=== PATIENT | male | born 1970 | race Caucasian/White ===

== ENCOUNTER 2017-03-22 06:16 | Observation (INO) | payer OTHER ==
[2017-03-22] VITALS (7 sets, daily range): BP systolic 127–156; BP diastolic 79–84; PULSE 53–75; RESP 16–18; TEMP 97.8–98.4; O2SAT 96–98
[~2017-03-22] VITALS: Ht 185.4 cm; Wt 117.1 kg
[~2017-03-22 06:16] MED LIST: ALEV220T14 PO; HYDR-3533 PO
[2017-03-22] MEDS ORDERED: IOHEXOL 350 MG/ML 10 ML VIAL (for RAD DIAG) IVCONTRAST ONE (06:17)
--- NOTE | 2017-03-22 06:39 | PD ---
HPI Chief Complaint: Abdominal Pain Time Seen by Provider: 06:29 Travel History International Travel<30 days: No Contact w/Intl Traveler<30days: No Traveled to known affect area: No History of Present Illness HPI This is a 46-year-old male who presents to the emergency department with abdominal discomfort that started at 10 PM last night, constant, moderate severity, improved when standing up and worse when laying flat, all over his abdomen radiating into the back. He has felt nauseous but hasn't vomited. He did feel little bit feverish this morning. He says he had a loose stool this morning but no jaciel diarrhea. He does have a history of a cholecystectomy and an umbilical hernia repair. PFSH Past Medical History Arthritis: Yes Asthma: No Autoimmune Disease: No Blood Disorders: No Anxiety: No Depression: No Heart Rhythm Problems: No Cancer: No Cardiovascular Problems: No High Cholesterol: No Chemotherapy: No Chest Pain: No Congestive Heart Failure: No COPD: No Cerebrovascular Accident: No Diabetes: No Diminished Hearing: No Endocrine: No GERD: No Glaucoma: No Genitourinary: No Headaches: No Hepatitis: No Hiatal Hernia: No Hypertension: No Kidney Stones: No Musculoskeletal: Yes ("I NEED TOTAL RIGHT HIP REPLACEMENT" STATED 03/22/17) Neurologic: No Psychiatric: No Respiratory: No Myocardial Infarction: No Radiation Therapy: No Renal Failure: No Seizures: No Sickle Cell Disease: No Sleep Apnea: No Thyroid Disease: No Ulcer: No Tetanus Vaccination: < 5 Years Influenza Vaccination: No Past Surgical History Abdominal Surgery: Yes (2 HERNIA REPAIRS WITH MESH) AICD: No Cardiac Surgery: No Cholecystectomy: Yes Ear Surgery: No Endocrine Surgery: No Eye Surgery: No Genitourinary Surgery: No Gynecologic Surgery: No Oral Surgery: No Pacemaker: No Thoracic Surgery: No Tonsillectomy: Yes Social History Alcohol Use: Yes (OCCASIONALLY) Tobacco Use: No Substance Use: No Allergies-Medications (Allergen,Severity, Reaction): Coded Allergies: azithromycin (Unverified Allergy, Severe, RASH, 03/22/17) Reported Meds & Prescriptions Reported Meds & Active Scripts Active Reported Lortab 5 mg/325 mg (Hydrocodone/Acetaminophen 5 mg/325 mg) 1 Tab 1 Tab PO Q6H PRN Aleve Arthritis (Naproxen Sodium) 220 Mg Tab 220 Mg PO BID PRN Review of Systems Except as stated in HPI: all other systems reviewed are Neg Physical Exam Narrative GENERAL:Well appearing, no acute distress SKIN: Focused skin assessment warm and dry. HEAD: Atraumatic. Normocephalic. EYES: Pupils equal and round. No injection or drainage. ENT: Moist mucous membranes NECK: Trachea midline. CARDIOVASCULAR: Regular rate and rhythm. No murmur appreciated. RESPIRATORY: Clear to auscultation. Breath sounds equal bilaterally. GASTROINTESTINAL: Abdomen soft, diffusely tender to palpation worse in the left lower quadrant with no rebound or guarding. MUSCULOSKELETAL: No obvious deformities. NEUROLOGICAL: Awake and alert. No obvious cranial nerve deficits. Moving all extremities. PSYCHIATRIC: Appropriate mood and affect; insight and judgment normal. Data Data Last Documented VS Vital Signs Date Time Temp Pulse Resp B/P (MAP) Pulse Ox O2 Delivery O2 Flow Rate FiO2 03/22/17 06:22 98.4 75 16 136/80 (98) 97 Orders Orders Complete Blood Count With Diff (03/22/17 06:36) Comprehensive Metabolic Panel (03/22/17 06:36) ^ Insert Iv (03/22/17 06:36) Ct Abd/Pel W Iv Contrast(Rout) (03/22/17 ) Morphine Inj (Morphine Inj) (03/22/17 06:45) Ondansetron Inj (Zofran Inj) (03/22/17 06:45) Ns (Bolus) Inj (03/22/17 06:45) MDM Medical Decision Making Medical Screen Exam Complete: Yes Emergency Medical Condition: Yes Differential Diagnosis Gastroenteritis, colitis, diverticulitis, pancreatitis, gastritis Narrative Course This is a 46-year-old male who presents to the emergency department with abdominal discomfort that's been going on since last evening. The pain appears to be most concentrated in the left lower abdomen concerning for possible diverticulitis. Labs will be obtained and CT imaging will be obtained. If reassuring patient can be discharged home. Nadine Salas MD Mar 22, 2017 06:39
[2017-03-22] MEDS ORDERED: MEDI220T PO (06:42)
[2017-03-22] MEDS ORDERED: HYDR-3533 PO (06:42)
[2017-03-22] MEDS ORDERED: SODIUM CHLOR 0.9% 1000 ML INJ 1,000 ML IV ONE (06:45)
[2017-03-22] MEDS ORDERED: MORPHINE SULFATE 4 MG/ML INJ IV PUSH ONE (06:45)
[2017-03-22] MEDS ORDERED: ONDANSETRON HCL 4 MG/2 ML VIAL IV PUSH ONE (06:45)
--- NOTE | 2017-03-22 06:49 | PD ---
Physical Exam Date Seen by Provider: Mar 22, 2017 Time Seen by Provider: 06:48 Narrative The patient is a 46-year-old male who was initially evaluated by the previous physician, Dr. Salas. Please refer to the initial history, physical, diagnostic evaluation, and treatment modality plan. The patient was signed out at 7 AM with laboratory evaluation and CT the abdomen and pelvis pending. Data Data Last Documented VS Vital Signs Date Time Temp Pulse Resp B/P (MAP) Pulse Ox O2 Delivery O2 Flow Rate FiO2 03/22/17 06:22 98.4 75 16 136/80 (98) 97 Orders Orders Complete Blood Count With Diff (03/22/17 06:36) Comprehensive Metabolic Panel (03/22/17 06:36) ^ Insert Iv (03/22/17 06:36) Ct Abd/Pel W Iv Contrast(Rout) (03/22/17 ) Morphine Inj (Morphine Inj) (03/22/17 06:45) Ondansetron Inj (Zofran Inj) (03/22/17 06:45) Sodium Chlor 0.9% 1000 Ml Inj (Ns 1000 M (03/22/17 06:45) Urinalysis - C+S If Indicated (03/22/17 06:41) Lipase (03/22/17 06:36) Iohexol 350 Inj (Omnipaque 350 Inj) (03/22/17 06:17) Ketorolac Inj (Toradol Inj) (03/22/17 07:15) Ns + Kcl 20 Meq Inj (Ns + Kcl 20 Meq Inj (03/22/17 08:15) Admit Order (Ed Use Only) (03/22/17 08:14) Vital Signs (Adult) Q4H (03/22/17 08:15) Diet Npo (03/23/17 Breakfast) Activity Oob Ad Eduarda (03/22/17 08:15) Complete Blood Count With Diff (03/23/17 06:00) Basic Metabolic Panel (Bmp) (03/23/17 06:00) ^ Saline Lock (03/22/17 08:15) Resp Oxygen Teodoro C Titrat 1-4 L (03/22/17 ) Notify Dr: Other (03/22/17 08:15) Ondansetron Inj (Zofran Inj) (03/22/17 08:15) Acetaminophen (Tylenol) (03/22/17 08:15) Acetaminophen Supp (Tylenol Supp) (03/22/17 08:15) Sodium Chloride 0.9% Flush (Ns Flush) (03/22/17 09:00) Sodium Chloride 0.9% Flush (Ns Flush) (03/22/17 08:15) Ns + Kcl 20 Meq Inj (Ns + Kcl 20 Meq Inj (03/22/17 08:15) Morphine Inj (Morphine Inj) (03/22/17 08:15) Labs Laboratory Tests Test 03/22/17 06:38 White Blood Count 13.6 TH/MM3 Red Blood Count 5.22 MIL/MM3 Hemoglobin 16.0 GM/DL Hematocrit 47.3 % Mean Corpuscular Volume 90.7 FL Mean Corpuscular Hemoglobin 30.6 PG Mean Corpuscular Hemoglobin Concent 33.8 % Red Cell Distribution Width 12.3 % Platelet Count 218 TH/MM3 Mean Platelet Volume 8.1 FL Neutrophils (%) (Auto) 77.3 % Lymphocytes (%) (Auto) 9.4 % Monocytes (%) (Auto) 6.9 % Eosinophils (%) (Auto) 1.7 % Basophils (%) (Auto) 4.7 % Neutrophils # (Auto) 10.6 TH/MM3 Lymphocytes # (Auto) 1.3 TH/MM3 Monocytes # (Auto) 0.9 TH/MM3 Eosinophils # (Auto) 0.2 TH/MM3 Basophils # (Auto) 0.6 TH/MM3 CBC Comment DIFF FINAL Differential Comment Blood Urea Nitrogen 17 MG/DL Creatinine 0.74 MG/DL Random Glucose 120 MG/DL Total Protein 7.7 GM/DL Albumin 4.1 GM/DL Calcium Level 9.0 MG/DL Alkaline Phosphatase 70 U/L Aspartate Amino Transf (AST/SGOT) 18 U/L Alanine Aminotransferase (ALT/SGPT) 28 U/L Total Bilirubin 0.6 MG/DL Sodium Level 137 MEQ/L Potassium Level 4.2 MEQ/L Chloride Level 103 MEQ/L Carbon Dioxide Level 25.7 MEQ/L Anion Gap 8 MEQ/L Estimat Glomerular Filtration Rate 114 ML/MIN Lipase 87 U/L [facility] Medical Record Reviewed: Yes Supervised Visit with YAMILETH: No Interpretation(s) Laboratory Tests Test 03/22/17 06:38 White Blood Count 13.6 TH/MM3 Red Blood Count 5.22 MIL/MM3 Hemoglobin 16.0 GM/DL Hematocrit 47.3 % Mean Corpuscular Volume 90.7 FL Mean Corpuscular Hemoglobin 30.6 PG Mean Corpuscular Hemoglobin Concent 33.8 % Red Cell Distribution Width 12.3 % Platelet Count 218 TH/MM3 Mean Platelet Volume 8.1 FL Neutrophils (%) (Auto) 77.3 % Lymphocytes (%) (Auto) 9.4 % Monocytes (%) (Auto) 6.9 % Eosinophils (%) (Auto) 1.7 % Basophils (%) (Auto) 4.7 % Neutrophils # (Auto) 10.6 TH/MM3 Lymphocytes # (Auto) 1.3 TH/MM3 Monocytes # (Auto) 0.9 TH/MM3 Eosinophils # (Auto) 0.2 TH/MM3 Basophils # (Auto) 0.6 TH/MM3 CBC Comment DIFF FINAL Differential Comment Blood Urea Nitrogen 17 MG/DL Creatinine 0.74 MG/DL Random Glucose 120 MG/DL Total Protein 7.7 GM/DL Albumin 4.1 GM/DL Calcium Level 9.0 MG/DL Alkaline Phosphatase 70 U/L Aspartate Amino Transf (AST/SGOT) 18 U/L Alanine Aminotransferase (ALT/SGPT) 28 U/L Total Bilirubin 0.6 MG/DL Sodium Level 137 MEQ/L Potassium Level 4.2 MEQ/L Chloride Level 103 MEQ/L Carbon Dioxide Level 25.7 MEQ/L Anion Gap 8 MEQ/L Estimat Glomerular Filtration Rate 114 ML/MIN Lipase 87 U/L CT the abdomen and pelvis reveals there is a mass in the anterior abdominal wall , the left side of the mesh is inferiorly displaced into the peritoneal cavity but only by 1.7 cm. There is some adjacent loops of small bowel which are distended, there is some low-grade inflammation in the adjacent mesentery. The distended small bowel loops leading to this area contents more suggestive of stool with tiny locules of air. Could be a partial small bowel obstruction, minimal areas of free fluid within the pelvis and the right lower quadrant. The flattened IVC suggest dehydration. Differential Diagnosis Differential diagnosis includes gastritis, peptic ulcer disease, gastroenteritis , pancreatitis, atypical appendicitis, retained biliary stone, abdominal pain NOS. Narrative Course The patient is a 46-year-old male who was initially evaluated by the previous physician, Dr. Salas. Please refer to the initial history, physical, diagnostic evaluation, and treatment modality plan. The patient was signed out at 7 AM with laboratory evaluation and CT of the abdomen and pelvis pending. The patient's white count is mildly elevated at 13.6, glucose is elevated at 120 , otherwise LFTs and lipase are unremarkable. The patient declined morphine, requested another pain medication. Therefore, the patient was administered Toradol [address] of the abdomen and pelvis reveals some distended loops of small bowel throughout the abdomen extending into an area where there are some previous ventral hernia mesh which is displaced from the left side of the abdomen, could be a partial small bowel obstruction, there are minimal areas of free fluid both in the pelvis and right lower quadrant. I reviewed the patient's EMR, he has a ventral hernia [place] [address] Mccarthy. The patient was reevaluated at 7:30 AM. The patient still has abdominal bloating and distention, last normal bowel movement was yesterday, he had a small loose bowel movement this morning. He does note decrease the amount of flatus. He does have mild nausea but no vomiting. Therefore, a call was placed to the patient's general surgeon, Dr. Mccarthy as well as [facility] at 7:40 AM. I discussed the patient with Dr. Diaz who evaluated the patient CT, thinks surgery may be a possibility, therefore, request transfer to [facility]. Therefore, the patient will be admitted to the surgical service at [facility]. Physician Communication Physician Communication Dr. Mccarthy and [facility] were paged at 7:40 AM. I discussed the patient with Dr. Diaz , on-call surgery for [facility], who agrees with admission to the [facility]. Diagnosis Primary Impression: Partial small bowel obstruction Admitting Information Admitting Physician Requests: Admit Condition: Stable Jevon Cortes MD Mar 22, 2017 06:49
[2017-03-22 06:52] LABS: AUTOMATED NEUTROPHIL # 10.6 TH/MM3 (1.8-7.7); BASOPHIL # 0.6 TH/MM3 (0-0.2); BASOPHIL % 4.7 % (0.0-2.0); EOSINOPHIL # 0.2 TH/MM3 (0-0.4); EOSINOPHIL % 1.7 % (0.0-4.0); HEMATOCRIT 47.3 % (39.0-51.0); LYMPH % 9.4 % (9.0-44.0); LYMPHOCYTE # 1.3 TH/MM3 (1.0-4.8); MEAN CELL VOLUME 90.7 FL (80.0-100.0); MEAN CORPUSCULAR HEMOGLOBIN 30.6 PG (27.0-34.0); MEAN CORPUSCULAR HGB CONC 33.8 % (32.0-36.0); MONO % 6.9 % (0.0-8.0); NEUT % 77.3 % (16.0-70.0); PLATELET COUNT 218 TH/MM3 (150-450); RED BLOOD COUNT 5.22 MIL/MM3 (4.50-5.90); RED CELL DISTRIBUTION WIDTH 12.3 % (11.6-17.2); WHITE BLOOD COUNT 13.6 TH/MM3 (4.0-11.0)
[2017-03-22 06:56] LABS: HEMO FLAGS DIFF FINAL
[2017-03-22 07:01] LABS: CHLORIDE 103 MEQ/L (98-107); POTASSIUM 4.2 MEQ/L (3.5-5.1); SODIUM (NA) 137 MEQ/L (136-145)
[2017-03-22 07:05] LABS: ANION GAP 8 MEQ/L (5-15); BICARBONATE 25.7 MEQ/L (21.0-32.0); BLOOD UREA NITROGEN 17 MG/DL (7-18)
[2017-03-22 07:08] LABS: ALT (GPT) 28 U/L (12-78); AST (GOT) 18 U/L (15-37); GLOMERULAR FILTRATION RATE 114 ML/MIN (>89)
[2017-03-22 07:09] LABS: TOTAL BILIRUBIN ADULT 0.6 MG/DL (0.2-1.0)
[2017-03-22 07:11] LABS: ALKALINE PHOSPHATASE 70 U/L (45-117)
[2017-03-22] MEDS ORDERED: KETOROLAC TROMETHAMINE 30 MG/ML (IVP) VIAL IV PUSH ONE (07:15)
--- NOTE | 2017-03-22 07:20 | RADRPT ---
EXAM DATE/TIME: 03/22/2017 06:57 [facility] COMPARISON: No previous studies available for comparison. INDICATIONS : Abdominal pain and bloating since 10 pm last night. IV CONTRAST: 97 cc Omnipaque 350 (iohexol) IV ORAL CONTRAST: No oral contrast ingested. RADIATION DOSE: 21.39 CTDIvol (mGy) ; Patient body habitus MEDICAL HISTORY : None SURGICAL HISTORY : Umbilical hernia repair. Cholecystectomy.Tonsillectomy. ENCOUNTER: Initial ACUITY: 1 day PAIN SCALE: 4/10 LOCATION: abdominal TECHNIQUE: Volumetric scanning of the abdomen and pelvis was performed. Using automated exposure control and ad justment of the mA and/or kV according to patient size, radiation dose was kept as low as reasonably achievable to obtain optimal diagnostic quality images. DICOM format image data is available electro nically for review and comparison. FINDINGS: LOWER LUNGS: The visualized lower lungs are clear. LIVER: Homogeneous density without lesion. There is no dilation of the biliary tree. No calcified gallston es. SPLEEN: Normal size without lesion. PANCREAS: Within normal limits. KIDNEYS: Normal in size and shape. There is no mass, stone or hydronephrosis. ADRENAL GLANDS: Within normal limits. VASCULAR: There is no aortic aneurysm. BOWEL/MESENTERY: There is a mesh in the anterior abdominal wall. The left side of the mesh is inferiorly displaced in to the peritoneal cavity but only by 1.7 cm . There is some adjacent loops of small bowel which are distended. There is some low grade inflammation in the adjacent mesentery. The distended small bowel loops leading to this area have contents more suggestive of stool with tiny locules of air. Could be a partial small bowel obstruction. Minimal areas of free fluid both in the pelvis and the right lower quadrant. RETROPERITONEUM: There is no lymphadenopathy. The flattened IVC suggests dehydration. BLADDER: No wall thickening or mass. REPRODUCTIVE: Within normal limits. INGUINAL: There is no lymphadenopathy or hernia. MUSCULOSKELETAL: Within normal limits for patient age. CONCLUSION: Some distended loops of small bowel throughout the abdomen extending into an area where there are audrey e previous ventral hernia mesh which is displaced from the left side of the abdomen. There is a subt le caliber change in this region with one tortuous loop of bowel (series 601 image 17), (series 2 im age 48-57). Triston English MD on March 22, 2017 at 7:13 Board Certified Radiologist. This report was verified electronically.
[2017-03-22] MEDS: NS + KCL 20 MEQ INJ 1,000 ML IV SCH ×5 (08:15→21:40)
[2017-03-22] MEDS ORDERED: ACETAMINOPHEN 325 MG TAB PO PRN (08:15)
[2017-03-22] MEDS ORDERED: SODIUM CHLORIDE 0.9% FLUSH 10 ML FLUSH IVF PRN (08:15)
[2017-03-22] MEDS ORDERED: ACETAMINOPHEN 650 MG SUPP PR PRN (08:15)
[2017-03-22] MEDS: SODIUM CHLORIDE 0.9% FLUSH 10 ML FLUSH IV FLUSH SCH ×2 (08:47→21:00)
[2017-03-22] MEDS: MORPHINE SULFATE 4 MG/ML INJ IV PUSH PRN ×2 (09:21→13:31)
[2017-03-22 11:22] LABS: GLUCOSE,URINE NEG (NEG); KETONE, URINE NEG (NEG); NITRITE,URINE NEG (NEG); PH, URINE 5.5 (5.0-8.5)
[2017-03-22 11:27] LABS: BLOOD, URINE TRACE (NEG)
[2017-03-22 11:28] LABS: COMMENT (UR) CULT NOT INDICATED; CULTURE IF INDICATED CULT NOT INDICATED; METHOD OF COLLECTION CLEAN CATCH; RBC, URINE 0-3 /hpf (0-3); SQUAMOUS EPITHELIAL CELL URINE 0-5 /hpf (0-5); URINE COLOR YELLOW (YELLW/STRAW)
--- NOTE | 2017-03-22 12:43 | HHI.HP ---
HPI Service General Surgery Primary Care Physician Gia Gunn MD Admission Diagnosis partial small bowel obstruction Chief Complaint: Abdominal pain History of Present Illness Mr. Renee is a 46-year-old male who developed acute onset of periumbilical abdominal pain yesterday which persisted and worsened throughout the night. He is unable to sleep last night. He had mild nausea after administration of morphine but otherwise no nausea or vomiting. He has had decreased flatus. He ate a large amount of almonds yesterday. He underwent laparoscopic cholecystectomy in 2004 with what sounds like primary repair of an umbilical hernia. The hernia recurred and he then underwent umbilical hernia repair with mesh in 2004. His is Janie a PACU nurse. Review of Systems Constitutional: DENIES: Fever, Chills Eyes: DENIES: Eye inflammation, Eye pain Respiratory: DENIES: Cough, Wheezing Cardiovascular: DENIES: Chest pain, Palpitations Gastrointestinal: COMPLAINS OF: Abdominal pain, Nausea, DENIES: Vomiting Musculoskeletal: COMPLAINS OF: Back pain, DENIES: Neck pain Integumentary: DENIES: Pruritus, Rash Neurologic: DENIES: Paresthesias, Seizures Past Family Social History Past Medical History None Past Surgical History Laps, cholecystectomy Umbilical hernia repair with mesh Reported Medications Reported Meds & Active Scripts Active Reported Naproxen Sodium 220 Mg Tab 220 Mg PO BID Lortab (Hydrocodone-Acetaminophen) 5-325 Mg Tab 1 Tab PO Q6H PRN Allergies: Coded Allergies: azithromycin (Unverified Allergy, Severe, RASH, 03/22/17) Active Ordered Medications Current Medications Medications (Trade) Dose Ordered Sig/Dana Route Start Time Stop Time Status Last Admin Potassium Chloride/Sodium Chloride 1,000 ml @ 125 mls/hr Q8H IV 03/22/17 08:15 03/22/17 08:23 (Zofran Inj) 4 mg Q6H PRN IV PUSH 03/22/17 08:15 (Tylenol) 650 mg Q4H PRN PO 03/22/17 08:15 (Tylenol Supp) 650 mg Q4H PRN NE 03/22/17 08:15 (NS Flush) 2 ml BID IV FLUSH 03/22/17 09:00 (NS Flush) 2 ml UNSCH PRN IVF 03/22/17 08:15 03/22/17 09:17 Potassium Chloride/Sodium Chloride 1,000 ml @ 125 mls/hr Q8H IV 03/22/17 08:15 (Morphine Inj) 4 mg Q3H PRN IV PUSH 03/22/17 08:15 03/22/17 09:21 Family History Noncontributory Social History Occasional alcohol use. No tobacco or drug use. Physical Exam Vital Signs Vital Signs Date Time Temp Pulse Resp B/P (MAP) Pulse Ox O2 Delivery O2 Flow Rate FiO2 03/22/17 11:35 03/22/17 11:30 67 18 140/81 (100) 97 03/22/17 08:42 69 18 148/79 (102) 98 Room Air 03/22/17 06:22 98.4 75 16 136/80 (98) 97 Physical Exam GENERAL: Awake and alert. No acute distress. Cooperative. HEAD: Normocephalic. Atraumatic. EYES: Pupils equal round and reactive to light bilaterally. No scleral icterus. ENT: Moist oral mucosa. NECK: Trachea midline. CHEST: Lungs clear to auscultation bilaterally with no wheezing or rhonchi. No respiratory distress. CARDIOVASCULAR: Regular rate and rhythm. ABDOMEN: Rounded, obese. Well-healed infraumbilical incision. Moderate point tenderness inferior and to the left of the umbilicus. No rebound or guarding. EXTREMITIES: No cyanosis or edema. SKIN: Warm, dry, nonjaundiced. Laboratory Laboratory Tests Test 03/22/17 06:38 03/22/17 11:14 White Blood Count 13.6 Red Blood Count 5.22 Hemoglobin 16.0 Hematocrit 47.3 Mean Corpuscular Volume 90.7 Mean Corpuscular Hemoglobin 30.6 Mean Corpuscular Hemoglobin Concent 33.8 Red Cell Distribution Width 12.3 Platelet Count 218 Mean Platelet Volume 8.1 Neutrophils (%) (Auto) 77.3 Lymphocytes (%) (Auto) 9.4 Monocytes (%) (Auto) 6.9 Eosinophils (%) (Auto) 1.7 Basophils (%) (Auto) 4.7 Neutrophils # (Auto) 10.6 Lymphocytes # (Auto) 1.3 Monocytes # (Auto) 0.9 Eosinophils # (Auto) 0.2 Basophils # (Auto) 0.6 CBC Comment DIFF FINAL Differential Comment Blood Urea Nitrogen 17 Creatinine 0.74 Random Glucose 120 Total Protein 7.7 Albumin 4.1 Calcium Level 9.0 Alkaline Phosphatase 70 Aspartate Amino Transf (AST/SGOT) 18 Alanine Aminotransferase (ALT/SGPT) 28 Total Bilirubin 0.6 Sodium Level 137 Potassium Level 4.2 Chloride Level 103 Carbon Dioxide Level 25.7 Anion Gap 8 Estimat Glomerular Filtration Rate 114 Lipase 87 Urine Collection Type CLEAN CATCH Urine Color YELLOW Urine Turbidity CLEAR Urine pH 5.5 Urine Specific [place] 1.010 Urine Protein NEG Urine Glucose (UA) NEG Urine Ketones NEG Urine Occult Blood TRACE Urine Nitrite NEG Urine Bilirubin NEG Urine Leukocyte Esterase NEG Urine RBC 0-3 Urine Squamous Epithelial Cells 0-5 Microscopic Urinalysis Comment CULT NOT INDICATED Urine Collection Time 11:14 Result Diagram: 03/22/17 0638 03/22/17 0638 Imaging Last Impressions Abdomen/Pelvis CT 03/22/17 0000 Signed Impressions: Service Date/Time: Wednesday, March 22, 2017 06:57 - CONCLUSION: Some distended loops of small bowel throughout the abdomen extending into an area where there are some previous ventral hernia mesh which is displaced from the left side of the abdomen. There is a subtle caliber change in this region with one tortuous loop of bowel (series 601 image 17), (series 2 image 48-57). MD Palmer Wadei VTE Risk Assessment Caprini VTE Risk Assessment: No/Low Risk (score <= 1) Caprini Risk Assessment Model Point Value = 1 Point Value = 2 Point Value = 3 Point Value = 5 Age 41-60 Minor surgery BMI > 25 kg/m2 Swollen legs Varicose veins or History of unexplained or recurrent spontaneous Oral contraceptives or hormone replacement Sepsis (< 1 month) Serious lung disease, including pneumonia (< 1 month) Abnormal pulmonary function Acute myocardial infarction Congestive heart failure (< 1 month) History of inflammatory bowel disease Medical patient at bed rest Age 61-74 Arthroscopic surgery Major open surgery (> 45 min) Laparoscopic surgery (> 45 min) Malignancy Confined to bed (> 72 hours) Immobilizing plaster cast Central venous access Age >= 75 History of VTE Family history of VTE Factor V Leiden Prothrombin [id number] Lupus anticoagulant Anticardiolipin antibodies Elevated serum homocysteine Heparin-induced thrombocytopenia Other congenital or acquired thrombophilia Stroke (< 1 month) Elective arthroplasty Hip, pelvis, or leg fracture Acute spinal cord injury (< 1 month) Prophylaxis Regimen Total Risk Factor Score Risk Level Prophylaxis Regimen 0-1 Low Early ambulation 2 Moderate Order ONE of the following: *Sequential Compression Device (SCD) *Heparin 5000 units SQ BID 3-4 Higher Order ONE of the following medications: *Heparin 5000 units SQ TID *Enoxaparin/Lovenox 40 mg SQ daily (WT < 150 kg, CrCl > 30 mL/min) *Enoxaparin/Lovenox 30 mg SQ daily (WT < 150 kg, CrCl > 10-29 mL/min) *Enoxaparin/Lovenox 30 mg SQ BID (WT < 150 kg, CrCl > 30 mL/min) AND/OR *Sequential Compression Device (SCD) 5 or more Highest Order ONE of the following medications: *Heparin 5000 units SQ TID (Preferred with Epidurals) *Enoxaparin/Lovenox 40 mg SQ daily (WT < 150 kg, CrCl > 30 mL/min) *Enoxaparin/Lovenox 30 mg SQ daily (WT < 150 kg, CrCl > 10-29 mL/min) *Enoxaparin/Lovenox 30 mg SQ BID (WT < 150 kg, CrCl > 30 mL/min) AND *Sequential Compression Device (SCD) Assessment and Plan Assessment and Plan 46-year-old male with abdominal pain since yesterday. CT abdomen and pelvis shows partial small bowel obstruction which appears to be at the site of previous mesh placement from umbilical hernia repair. He does have mild leukocytosis and moderate abdominal tenderness. I will order a small bowel follow-through to further evaluate and also see if this can be resolved. Had a long discussion with the patient and his regarding his diagnosis and our plan over the next couple of days attempting nonoperative management. He understands if he does not improve and/or worsens he could require operative intervention. Graham Diaz MD Mar 22, 2017 12:43
[2017-03-22] MEDS: ONDANSETRON HCL 4 MG/2 ML VIAL IV PUSH PRN (13:30)
[2017-03-22] MEDS ORDERED: DIATRIZOATE MEGLUM/DIATRIZOATE SOD 120 ML BTL (for RAD DIAG) PO ONE (14:16)
--- NOTE | 2017-03-22 19:42 | RADRPT ---
EXAM DATE/TIME: 03/22/2017 13:50 [facility] COMPARISON: CT ABDOMEN & PELVIS W CONTRAST, March 22, 2017, 6:57. INDICATIONS : Abdominal pain, nausea. FLUORO TIME: 1.1 minutes IMAGE COUNT: 19 CONTRAST: MD [place] IMAGING TIME(S): 15 min, 30 min, 45 min, 1 hr, 1.5 hrs2 hr, 4hr MEDICAL HISTORY : Arthritis. SURGICAL HISTORY : Umbilical hernia repair. Cholecystectomy.Tonsillectomy. ENCOUNTER: Subsequent ACUITY: 2 days PAIN SCORE: 4/10 LOCATION: Umbilical FINDINGS: The initial tongue carrier radiograph shows a fairly long segment of moderately distended small bowel in the m idabdomen, similar to the CT earlier today. Small bowel transit time is between 2 and 4 hours, probably closer to 2. The segment of distended sma ll bowel is probably at the level of the distal jejunum/proximal ileum and appears to have some acute angulation just below the umbilicus. The proximal jejunum is not significantly distended. The distal ileum is decompressed. Contrast passes into the colon. CONCLUSION: Partial small bowel obstruction at the level of the distal jejunum/proximal ileum. I believe the abdalla sition point is in the anterior peritoneal cavity near the umbilicus. Vin Jefferson MD on March 22, 2017 at 19:37 Board Certified Radiologist. This report was verified electronically.
[2017-03-23] VITALS (7 sets, daily range): BP systolic 139–178; BP diastolic 62–99; PULSE 54–78; RESP 18–20; TEMP 96.8–98.4; O2SAT 96–100
[2017-03-23] MEDS: NS + KCL 20 MEQ INJ 1,000 ML IV SCH ×6 (00:15→23:27)
[2017-03-23 08:19] LABS: AUTOMATED NEUTROPHIL # 5.2 TH/MM3 (1.8-7.7); BASOPHIL % 0.4 % (0.0-2.0); EOSINOPHIL # 0.2 TH/MM3 (0-0.4); EOSINOPHIL % 2.7 % (0.0-4.0); HEMATOCRIT 41.6 % (39.0-51.0); HEMO FLAGS DIFF FINAL; LYMPH % 17.4 % (9.0-44.0); LYMPHOCYTE # 1.3 TH/MM3 (1.0-4.8); MEAN CELL VOLUME 92.3 FL (80.0-100.0); MEAN CORPUSCULAR HEMOGLOBIN 31.5 PG (27.0-34.0); MEAN CORPUSCULAR HGB CONC 34.1 % (32.0-36.0); MONO % 8.9 % (0.0-8.0); NEUT % 70.6 % (16.0-70.0); PLATELET COUNT 165 TH/MM3 (150-450); RED BLOOD COUNT 4.51 MIL/MM3 (4.50-5.90); RED CELL DISTRIBUTION WIDTH 12.9 % (11.6-17.2); WHITE BLOOD COUNT 7.4 TH/MM3 (4.0-11.0)
[2017-03-23 08:43] LABS: BICARBONATE 27.3 MEQ/L (21.0-32.0)
[2017-03-23] MEDS: SODIUM CHLORIDE 0.9% FLUSH 10 ML FLUSH IV FLUSH SCH ×2 (09:56→22:05)
--- NOTE | 2017-03-23 10:05 | HHI.PR ---
Subjective Subjective Notes Pain is improving. He had many bowel movts liquid. Objective Vitals/I&O Vital Signs Date Time Temp Pulse Resp B/P (MAP) Pulse Ox O2 Delivery O2 Flow Rate FiO2 03/23/17 08:15 96.8 58 18 154/80 (104) 97 03/23/17 07:56 21 03/22/17 08:42 Room Air Labs Laboratory Tests Test 03/22/17 11:14 03/23/17 06:32 Urine Collection Type CLEAN CATCH Urine Color YELLOW Urine Turbidity CLEAR Urine pH 5.5 Urine Specific [place] 1.010 Urine Protein NEG Urine Glucose (UA) NEG Urine Ketones NEG Urine Occult Blood TRACE Urine Nitrite NEG Urine Bilirubin NEG Urine Leukocyte Esterase NEG Urine RBC 0-3 Urine Squamous Epithelial Cells 0-5 Microscopic Urinalysis Comment CULT NOT INDICATED Urine Collection Time 11:14 White Blood Count 7.4 Red Blood Count 4.51 Hemoglobin 14.2 Hematocrit 41.6 Mean Corpuscular Volume 92.3 Mean Corpuscular Hemoglobin 31.5 Mean Corpuscular Hemoglobin Concent 34.1 Red Cell Distribution Width 12.9 Platelet Count 165 Mean Platelet Volume 8.2 Neutrophils (%) (Auto) 70.6 Lymphocytes (%) (Auto) 17.4 Monocytes (%) (Auto) 8.9 Eosinophils (%) (Auto) 2.7 Basophils (%) (Auto) 0.4 Neutrophils # (Auto) 5.2 Lymphocytes # (Auto) 1.3 Monocytes # (Auto) 0.7 Eosinophils # (Auto) 0.2 Basophils # (Auto) 0.0 CBC Comment DIFF FINAL Differential Comment Blood Urea Nitrogen 14 Creatinine 0.74 Random Glucose 82 Calcium Level 8.5 Sodium Level 143 Potassium Level 4.0 Chloride Level 110 Carbon Dioxide Level 27.3 Anion Gap 6 Estimat Glomerular Filtration Rate 114 Radiology Last Impressions Abdomen/Pelvis CT 03/22/17 0000 Signed Impressions: Service Date/Time: Wednesday, March 22, 2017 06:57 - CONCLUSION: Some distended loops of small bowel throughout the abdomen extending into an area where there are some previous ventral hernia mesh which is displaced from the left side of the abdomen. There is a subtle caliber change in this region with one tortuous loop of bowel (series 601 image 17), (series 2 image 48-57). Triston English MD Narrative Exam NAD Abd: soft, mild tenderness near umbilicus, better than prior A/P Assessment and Plan 46 yo M with resolving partial SBO apparently from adhesions at mesh site. Improving. Start fulls and soft diet tonight if tolerates. Likely dc home tomorrow. Recommend no nuts or large amt of raw vegetables. JoeGraham ferrer MD Mar 23, 2017 10:05
[2017-03-23] MEDS: ONDANSETRON HCL 4 MG/2 ML VIAL IV PUSH PRN (15:10)
[2017-03-24] MEDS: NS + KCL 20 MEQ INJ 1,000 ML IV SCH ×3 (00:15→08:15)
[2017-03-24 04:52] VITALS: BP 129/60; PULSE 68; RESP 18; TEMP 98.4; O2SAT 95
[2017-03-24 04:59] VITALS: BP 139/82; PULSE 56; RESP 18; TEMP 98.7; O2SAT 98
[2017-03-24 07:52] VITALS: BP 158/77; RESP 18; TEMP 98.2; O2SAT 97
[2017-03-24] MEDS: SODIUM CHLORIDE 0.9% FLUSH 10 ML FLUSH IV FLUSH SCH (08:35)
[2017-03-24 11:57] VITALS: BP 167/82; PULSE 53; RESP 20; TEMP 98.2; O2SAT 96
--- NOTE | 2017-03-24 13:07 | HHI.PR ---
Subjective Subjective Notes Feels better; having multiple BM's plus flatus. Occasional crampy mid-abdominal pain, but much improved. No other complaints. Objective Vitals/I&O Vital Signs Date Time Temp Pulse Resp B/P (MAP) Pulse Ox O2 Delivery O2 Flow Rate FiO2 03/24/17 11:57 98.2 53 20 167/82 (110) 96 03/23/17 07:56 21 03/22/17 08:42 Room Air Radiology Last Impressions Abdomen/Pelvis CT 03/22/17 0000 Signed Impressions: Service Date/Time: Wednesday, March 22, 2017 06:57 - CONCLUSION: Some distended loops of small bowel throughout the abdomen extending into an area where there are some previous ventral hernia mesh which is displaced from the left side of the abdomen. There is a subtle caliber change in this region with one tortuous loop of bowel (series 601 image 17), (series 2 image 48-57). Triston English MD Cardiovascular: Regular Lungs: Clear Abdomen: Non-distended, Non-tender, BS normal Extremities: No edema A/P Assessment and Plan Impression: possible partial SBO, now mostly relieved. No surgical issues at present. Plan: D/C to home; I told him to follow up with Dr. Gunn and that he might require GI follow up if he continues to have this problem. Tulio Tapia MD Mar 24, 2017 13:07
== END 2017-03-24 13:57 | disposition home or self-care (01) ==
LOC: PHED 06:16 → PHEDA 08:16 → INTOOBSV 08:16 → NEPFCDU 12:09
PROVIDERS: ADMIT Surgery; ATTEND Surgery
DX: R10.9 Unspecified abdominal pain (principal); M19.90 Unspecified osteoarthritis, unspecified site; R14.0 Abdominal distension (gaseous); R11.0 Nausea; D72.829 Elevated white blood cell count, unspecified
CPT/HCPCS: 74177; 74250; 80048; 80053; 81001; 83690; 85025; 96361; 96374; 96375; G0378; J1885; J2270; J2405; J3480; J7030; Q9963; Q9967

== ENCOUNTER 2017-09-03 06:23 | Day surgery (SDC) | payer OTHER ==
[~2017-09-03] VITALS: Ht 185.4 cm; Wt 116.1 kg
[~2017-09-03 06:23] MED LIST changes: -ALEV220T14 PO; +MEDI220T PO
[2017-09-03] MEDS ORDERED: IOHEXOL 350 MG/ML 100 ML BTL (for Cath Lab) OTHER ONE (06:24)
[2017-09-03] MEDS ORDERED: IOHEXOL 350 MG/ML 50 ML BTL (for Cath Lab) OTHER ONE (06:24)
[2017-09-03] MEDS ORDERED: SODIUM CHLOR 0.9% 1000 ML INJ 1,000 ML IV SCH (06:45)
[2017-09-03 07:05] VITALS: BP 153/93; PULSE 61; RESP 16; TEMP 98; O2SAT 98
[2017-09-03] MEDS ORDERED: ASPI81TA23 PO (07:08)
[2017-09-03] MEDS ORDERED: METO25TA3 PO (07:29)
[2017-09-03] MEDS ORDERED: ATOR20TA15 PO (07:29)
[2017-09-03] MEDS ORDERED: MIDAZOLAM HCL 2 MG/2 ML VIAL ONE ×2 (08:17→09:14)
[2017-09-03] MEDS ORDERED: HEPARIN-NS/PF FLUSH BAG 2,000 ML IV FLUSH ONE (08:17)
[2017-09-03] MEDS ORDERED: HEPARIN SODIUM - IV 10,000 UNITS/10 ML VIAL ONE (08:29)
[2017-09-03] MEDS ORDERED: VERAPAMIL HCL 5 MG/2 ML VIAL ONE (08:29)
[2017-09-03] MEDS ORDERED: NITROGLYCERIN INJ 5 ML ONE (08:30)
[2017-09-03] MEDS ORDERED: BIVALIRUDIN 250 MG VIAL ONE (09:26)
[2017-09-03] MEDS ORDERED: CLOPIDOGREL 300 MG TAB ONE (09:34)
[2017-09-03] MEDS ORDERED: BIVALIRUDIN INJ 250 MG in SODIUM CHLORIDE 0.9% INJ 50 ML IV SCH (09:43)
[2017-09-03] MEDS ORDERED: LIDOCAINE 2% JELLY 30 ML TUBE TOP PRN (09:45)
[2017-09-03] MEDS ORDERED: oxyCODONE/ACETAMINOPHEN 5 MG/325 MG TAB PO PRN (09:45)
[2017-09-03] MEDS ORDERED: BACITRACIN OINT 0.9 GM PKT TOP ONE (09:45)
[2017-09-03] MEDS ORDERED: MISC INFORMATION XX ONE (09:45)
--- NOTE | 2017-09-03 09:47 | CATHPROC ---
[employer] HIS Report Study Information Study Number Admission Scheduled Start Study Start [id number] Sep 03 2017 6:23AM 09/03/2017 Sep 03 2017 8:07AM [place] Service Cardiac Catheterization Admit Source Facility Department Other [facility] Physician and Clinical Staff Initial Triston Carroll Marketing Technology Coordinator Ney Polk RN Marketing Technology Coordinator Amandeep Terrazas RN Other cathlab, cathlab Recorder Ana Alford,MANAGER OF FINANCE TECH2 Scrub Georgette Sandoval ,RT(R) Procedures Performed Procedure Location (Site) Vessel Name Coronary Angiograms LCA Left Coronary Coronary Angiograms RCA Right Coronary Drug Eluting Inflatio LAD Mid Left Coronary L Heart Cath Wire insertion Radial (right) Radial Art. Equipment Time Waiter/Waitress Formal Description Size Mfg Part Number Used/Scraped TRANSDUCER, JULIAN [id number] 08:50 [employer] HAGEN * Used W/STOCKCOCK *[id number] *[id number] *[id number] WIRE, CHOICE PT 300CM PT EX. [id number] 08:54 zSouptech 300CM Used SUPP *[id number] 08:50 [employer] PACK, CCL CUSTOM * Used *[id number] 08:50 [employer] SUPPORT, ARTERIAL ADULT [id number] *[id number] Used [id number] 08:50 [employer] PACER PEN, SKIN DUAL W/ RULER * Used *[id number] 08:49 MEDTRONIC JR 5.0 DXTERITY CATHETER fr 5 [id number] Used [id number] 09:30 MEDTRONIC STENT, 2.5 15MM RIVKA 2.5 15MM Used *[id number] 09:30 [employer] 30 LIVE INDEFLATOR Used *[id number] BAND, RADIAL COMPRESSION TR [id number] 09:35 [employer] MEDICAL 29CM Used LARGE 29 *[id number] SHEATH, FR6 RADIAL PRELUDE 08:50 [employer] FR 6 [id number] Used EASE 11CM [id number] 08:50 [employer] WIRE, EXCHANGE 260CM 3MMJ 260CM Used *[id number] 08:50 NYCOMED OMNIPAQUE, 350 MG, 150ML 150ML [id number] Used [id number] 08:50 MEDINA MEDICAL BLANKET,WARM AIR CCL * Used *[id number] 09:17 [place] PRIME WIRE, VERRATA 185CM 185CM [id number] *[id number] Used Equipment Model, Serial, Lot Number and Expiration Data Description Model Number Serial Number Lot Number Expiration Date STENT, 2.5 15MM RIVKA [id number] 05-20-2019 History: Current Medications Medication Dosage/Unit Route Frequency Last Date/Time Taken ASA History: Allergies Allergy Reaction azithromycin RASH History: Risk Factors Family History of Hypertension Dyslipidemia Previous IA Previous Heart Failure Premature CAD Yes No No No No Prior Valve Prior PCI Prior CABG Surgery No No No Cerebrovascular Peripheral Artery Chronic Lung On Dialysis Diabetes Disease Disease Disease No No No No No History: Risk Factors Selection Items Obesity History: Symptoms/Diagnosis Selection Items Chest pain History: Stress Tests Stress or Imaging Studies Performed Yes Standard Exercise Stress Test No Stress Echo No Stress Test SPECT No Stress Test CMR Stress Test CMR Result Stress Test CMR Ischemia Risk/Extent Yes Positive Intermediate Cardiac CTA Coronary Calcium Score No No History: Other Disease Selection Items HTN History: Other Current Smoker No Labs Hgb (g/dl) Hct (%) RBC (MIL/MM3) WBC (l/cumm) Platelets (thousands) 11.60-17.00 35.00-51.00 4.00-5.90 4.00-11.00 150.00-450.00 14.3 43.6 4.8 8.9 201 Glucose (mg/dl) BUN (mg/dl) Creatinine (mg/dl) BUN:Creatinine (1:x) 74.00-106.00 7.00-18.00 0.50-1.30 10.00-20.00 104 13 0.8 16.3 Na (meq/l) K (meq/l) Cl (meq/l) CO2 (mmol/L) Ca (mg/dl) 136.00-145.00 3.50-5.10 98.00-107.00 21.00-32.00 8.50-10.10 143 5 101 28 9.6 PT (sec) INR (PTT:PT) 9.80-11.60 0.90-1.10 10.1 0.9 CPK-MB (ng/ML) 0.50-3.60 Not Drawn Medication Medication Total Dose (Bolus/Oral) Medication Total Dosage/Unit 1% XYLOCAINE 10 mL ANGIOMAX BOLUS 17 mL FENTANYL 100 mcg HEPARIN 8000 units NTG (IC) 200 mcg OXYGEN 2 l/min PLAVIX 600 mg VERSED 4 mg Medications (Bolus/Oral) Medication Time Given Dosage/Unit Administered By Reason VERSED 09/03/2017 8:45:53 AM 2 mg Nini, Amandeep 2 mg VERSED given in lab by Amandeep Terrazas RN in Left Antecubital via Peripheral IV. Ordered by Triston Negron. FENTANYL 09/03/2017 8:46:40 AM 50 mcg Nini, Amandeep 50 mcg FENTANYL given in lab by Amandeep Terrazas RN in Left Antecubital via Peripheral IV. Ordered by Triston Moore. 1% XYLOCAINE 09/03/2017 8:47:15 AM 10 mL Triston Negron 10 mL 1% XYLOCAINE given in lab by Triston Negron in Right Radial via Subcutaneous. Ordered by Triston Negron. NTG (IC) 09/03/2017 8:50:35 AM 200 mcg Triston Negron 200 mcg NTG (IC) given in lab by Triston Negron in Right Radial via Intra-arterial. Ordered by Triston Negron. HEPARIN 09/03/2017 8:53:29 AM 5000 units Nini, Amandeep 5000 units HEPARIN given in lab by Amandeep Terrazas RN in Left Antecubital via Peripheral IV. Ordered by Triston Negron. HEPARIN 09/03/2017 9:12:21 AM 3000 units Ney Polk 3000 units HEPARIN given in lab by Ney Polk RN in Left Antecubital via Peripheral IV. Ordered by Triston Negron. VERSED 09/03/2017 9:14:50 AM 2 mg Nini, Amandeep 2 mg VERSED given in lab by Amandeep Terrazas RN in Left Antecubital via Peripheral IV. Ordered by Triston Negron. FENTANYL 09/03/2017 9:15:34 AM 50 mcg Nini, Amandeep 50 mcg FENTANYL given in lab by Amandeep Terrazas RN in Left Antecubital via Peripheral IV. Ordered by Triston Moore. OXYGEN 09/03/2017 9:19:29 AM 2 l/min Nini, Amandeep 2 l/min OXYGEN given in lab by Amandeep Terrazas RN via Nasal. Ordered by Triston Negron. ANGIOMAX BOLUS 09/03/2017 9:30:04 AM 17 mL Nini, Amandeep 17 mL ANGIOMAX BOLUS given in lab by Amandeep Terrazas RN in Left Antecubital via Peripheral IV. Ordered by Triston Negron. PLAVIX 09/03/2017 9:32:56 AM 600 mg Amandeep Terrazas 600 mg PLAVIX given in lab by Amandeep Terrazas RN via Oral. Ordered by Triston Negron. Medication (Drip) Medication Time Given Dosage/Unit Concentration/Unit Diluent (ml) Solution ANGIOMAX DRIP 09/03/2017 9:32:01 AM 1.75 mg/kg/hr 250 mg 50 NaCl .9 1.75 mg/kg/hr ANGIOMAX DRIP given in lab by Amandeep Terrazas RN in Left Antecubital via Peripheral IV. P ump/Drip Flow = 40.64 ml/hr using NaCl .9 with a concentration of 250 mg in 50 ml. Ordered by Triston Negron. IV Solutions 09/03/2017 8:22:53 AM 0 mL (IV) 500 NaCl .9 IV Solutions given in lab by Amandeep Terrazas RN in Left Antecubital via Peripheral IV. Pump/Drip Flow = 20 ml/hr using NaCl .9. Ordered by Triston Negron. Initial Case Assessment Cardiovascular HR Rhythm NIBP Chest Pain 63 Sinus 171/91 0 Edema Present Skin color Skin None Normal Warm Dry Circulatory - Right Pulses Dorsalis Pedis Femoral Radial 2 3 3 Scale (0,1,2,3,4,d) Scale (0,1,2,3,4,d) Neurological State Oriented to time-place- Alert Moves all extremities person Respiration - General Respiration Rate SpO2 (%) O2 (lpm) (B/min) 15 100 0 Final Case Assessment Cardiovascular HR Rhythm NIBP Chest Pain 60 Sinus 149/82 0 Edema Present Skin color Skin None Normal Warm Dry Circulatory - Right Pulses Dorsalis Pedis Femoral Radial 2 3 3 Scale (0,1,2,3,4,d) Scale (0,1,2,3,4,d) Neurological State Oriented to time-place- Alert Moves all extremities person Respiration - General Respiration Rate SpO2 (%) O2 (lpm) (B/min) 14 14 0 Chronological Log Time Study Chronological Log 8:13:15 Patient arrived via Bed. Vitals capture started with the following parameters, Patient=Adult, Interval=5 min, Initial Pr oumsze=264 mmHg, 8:22:28 Deflation Rate=5 mmHg, Cuff placed on Right Arm 8:22:37 Patient Name, D.O.B, / Armband Verified By R.N. 8:22:38 Consent signed by the physician and the patient and verified by the [facility] staff. 8:22:39 Pre-op and post- op instructions given; patient acknowledges understanding of instructions. 8:22:41 Allens test performed on the right radial and ulnar artery. 8:22:46 Patient has been NPO for More than 6Hrs. 8:22:47 NO Skin Breakdown- 8:22:48 Patient Warmer Placed on the Table. 8:22:49 Mariah Prominences Protected 8:22:52 A # 20 IV was noted in the Antecubital (left). Grade = 0 IV Solutions given in lab by Amandeep Terrazas RN in Left Antecubital via Peripheral IV. Pump/Drip F low = 20 ml/hr using 8:22:53 NaCl .9. Ordered by Triston Negron. 8:22:54 History and physical on the chart or being dictated. 8:23:47 HR=63 bpm, RRES=504/91 mmhg, BoS3=682.0 %, Resp=15 B/min, Pain=0, Wiliam=8, Barba=2 8:24:43 Reference ECG taken Assessment: Initial Case, HR=63 BPM, Rhythm=Sinus, OSTH=783/91 mmhg, Chest Pain=0, Edema=None, Color=Normal, Skin = Warm, Dry 8:24:48 Right Pulses: Eder Ped=2, Femoral=3, Radial=3 Neurological: State=Alert, Ox3, ESTES Respiration: Resp=15 B/min, QtY9=642 %, O2=0 lpm 8:27:58 Right Radial and groin(s) prepped with 2% chlorhexidine, and draped after a 3 min. waiting t [place]. 8:28:09 HR=62 bpm, SZUD=800/94 mmhg, RmZ2=742.0 %, Resp=18 B/min, Pain=0, Wiliam=8, Barba=2 8:33:14 HR=61 bpm, ZEAK=154/87 mmhg, SpO2=99.0 %, Resp=15 B/min, Pain=0, Wiliam=8, Barba=2 8:38:09 HR=61 bpm, QHDJ=691/94 mmhg, SpO2=97.0 %, Resp=16 B/min, Pain=0, Wiliam=8, Barba=2 8:41:24 Pressure channel 1 zeroed. 8:43:12 HR=64 bpm, ODQN=681/90 mmhg, ToQ1=883.0 %, Resp=12 B/min, Pain=0, Wiliam=8, Barba=2 Time Out. Correct patient, correct procedure, correct physician, power injector not loaded with contrast with surgical 8:44:43 team present. Time Out Concurred by MD and individual staff in procedure. 8:45:52 Case Start 8:45:53 2 mg VERSED given in lab by Amandeep Terrazas RN in Left Antecubital via Peripheral IV. Ordered by Triston Negron. 8:46:40 50 mcg FENTANYL given in lab by Amandeep Terrazas RN in Left Antecubital via Peripheral IV. Orde red by Triston Negron. 8:47:15 10 mL 1% XYLOCAINE given in lab by Triston Negron in Right Radial via Subcutaneous. Ordered by Triston Negron. 8:48:13 HR=72 bpm, TGQR=657/96 mmhg, SpO2=98.0 %, Resp=10 B/min, Pain=0, Wiliam=8, Barba=2 8:49:08 Access site was Radial Artery. A SHEATH, FR6 RADIAL PRELUDE EASE 11CM FR 6 was advanced into the Radial (right) using the Modif ied Seldinger 8:49:28 technique. 8:50:35 200 mcg NTG (IC) given in lab by Triston Negron in Right Radial via Intra-arterial. Ordered by Triston Negron. 8:51:18 In the Radial (right) the SHEATH, FR6 RADIAL PRELUDE EASE 11CM FR [address] by Triston Negron. A JR 5.0 DXTERITY CATHETER fr 5 was advanced over a wire. OMNIPAQUE, 350 MG, 150ML 150ML was use d for 8:52:41 injections. 8:53:12 HR=66 bpm, TKHA=490/96 mmhg, SpO2=95.0 %, Resp=19 B/min, Pain=0, Wiliam=8, Barba=2 8:53:29 5000 units HEPARIN given in lab by Amandeep Terrazas, RN in Left Antecubital via Peripheral IV. O rdered by Triston Negron. 8:54:23 The previous wire was exchanged for a WIRE, CHOICE PT 300CM PT EX. SUPP 300CM. 8:55:17 The previous wire was exchanged for a WIRE, EXCHANGE 260CM 3MMJ 260CM. 8:58:13 HR=68 bpm, LARD=070/91 mmhg, SpO2=92.0 %, Resp=23 B/min, Pain=0, Wiliam=8, Barba=2 8:58:19 The RCA was injected and visualized at various angles. OMNIPAQUE, 350 MG, 150ML 150ML used. Recorded Pressure: Ao, HR=68, Condition=Condition 1 8:58:49 (Aorta) Ao 135/82/106 After removing the current catheter a JL 4.0 INFINITI CATHETER FR 5 was advanced over a WIRE, EX CHANGE 260CM 9:00:27 3MMJ 260CM. 9:03:08 HR=71 bpm, SSEL=037/97 mmhg, SpO2=95.0 %, Resp=13 B/min, Pain=0, Wiliam=8, Barba=2 9:03:52 The LCA was injected and visualized at various angles. OMNIPAQUE, 350 MG, 150ML 150ML used. 9:08:09 HR=68 bpm, PZOH=502/91 mmhg, SpO2=95.0 %, Resp=14 B/min, Pain=0, Wiliam=8, Barba=2 9:12:21 3000 units HEPARIN given in lab by Ney Polk, RN in Left Antecubital via Peripheral IV. Ordered by Triston Negron. After removing the current catheter a XBLAD 4.0 GUIDE CATHETER FR 6 was advanced over a WIRE, EX CHANGE 9:12:35 260CM 3MMJ 260CM. 9:13:08 HR=66 bpm, HDNY=018/101 mmhg, SpO2=95.0 %, Resp=25 B/min, Pain=0, Wiliam=10, Barba=2 9:14:50 2 mg VERSED given in lab by Amandeep Terrazas, RN in Left Antecubital via Peripheral IV. Ordered by Triston Negron. 9:15:34 50 mcg FENTANYL given in lab by Amandeep Terrazas RN in Left Antecubital via Peripheral IV. Orde red by Triston Negron. 9:18:38 HR=76 bpm, ABEU=687/92 mmhg, SpO2=90.0 %, Resp=22 B/min, Pain=0, Wiliam=10, Barba=2 9:18:47 A PRIME WIRE, VERRATA 185CM 185CM was inserted via Radial (right). 9:19:27 Pressure channel 1 zeroed. 9:19:29 2 l/min OXYGEN given in lab by Amandeep Terrazas RN via Nasal. Ordered by Triston Negron. 9:21:10 Interventional wire has crossed the lesion 9:22:23 Flow Wire was was placed in the LAD Mid. The FFR measures ~FFR~ percent. The IFR measures 0. 86 Percent. 9:23:10 HR=63 bpm, HMWO=918/86 mmhg, SpO2=97.0 %, Resp=22 B/min, Pain=0, Wiliam=10, Barba=2 9:28:09 HR=70 bpm, EABD=782/88 mmhg, SpO2=96.0 %, Resp=20 B/min, Pain=0, Wiliam=10, Barba=2 A STENT, 2.5 15MM RIVKA 2.5 15MM was advanced through a XBLAD 4.0 GUIDE CATHETER FR 6 over a PRIM E WIRE, 9:29:09 VERRATA 185CM 185CM. A STENT, 2.5 15MM RIVKA 2.5 15MM was deployed using a 30 LIVE INDEFLATOR at 14 atmospheres for 10 seconds in 9:29:53 the LAD Mid. 17 mL ANGIOMAX BOLUS given in lab by Amandeep Terrazas RN in Left Antecubital via Peripheral IV. Ord ered by Jamil, 9:30:04 Triston. 9:31:47 Delivery device removed 1.75 mg/kg/hr ANGIOMAX DRIP given in lab by Amandeep Terrazas RN in Left Antecubital via Peripheral IV. Pump/Drip Flow 9:32:01 = 40.64 ml/hr using NaCl .9 with a concentration of 250 mg in 50 ml. Ordered by Triston Negron. 9:32:51 A WIRE, EXCHANGE 260CM 3MMJ 260CM was inserted via Radial (right). 9:32:56 600 mg PLAVIX given in lab by Amandeep Terrazas, RN via Oral. Ordered by Triston Negron. 9:33:20 Case End 9:34:02 HR=62 bpm, VGZE=814/94 mmhg, SpO2=99.0 %, Resp=20 B/min, Pain=0, Wiliam=10, Barba=2 9:35:31 No case complications noted. 9:35:32 Cine recording checked. 9:38:14 HR=57 bpm, IDOE=145/94 mmhg, SpO2=98.0 %, Resp=20 B/min, Pain=0, Wiliam=10, Barba=2 Radial Compression Device Used. 13 mLs of air placed in BAND, RADIAL COMPRESSION TR LARGE 29 29C M. Affected 9:40:14 hand 99 % O2 saturation. 9:43:13 HR=60 bpm, AMGO=582/82 mmhg, SpO2=99.0 %, Resp=14 B/min, Pain=0, Wiliam=10, Barba=2 9:45:19 Vitals capture stopped. Assessment: Final Case, HR=60 BPM, Rhythm=Sinus, CCCI=196/82 mmhg, Chest Pain=0, Edema=None, Color=Normal, Skin = Warm, Dry 9:45:24 Right Pulses: Eder Ped=2, Femoral=3, Radial=3 Neurological: State=Alert, Ox3, ESTES Respiration: Resp=14 B/min, SpO2=14 %, O2=0 lpm 9:46:24 Bedside Report will be given. 9:46:26 Implantable Device card placed in patient's chart. 9:46:29 A Left Heart Cath was performed. 9:46:30 [facility] Clinical correlaton risk stratification. End Study - Contrast Media Used In Study Contrast Total Opened (mL) Total Used (mL) Total Wasted (mL) Omnipaque 140 140 0 End Study - Maximum Contrast Load Max Contrast Load (mL) 725.6 End Study - Radiation Exposure Fluoro Time (minutes) 11.1 End Study - Patient Disposition Complications Transferred To Interventional Outcome No Telemetry Bed successful
[2017-09-03] MEDS ORDERED: ISOS30TA3 PO (09:52)
[2017-09-03] MEDS ORDERED: PLAV75TA29 PO (09:53)
[2017-09-03] MEDS ORDERED: PILL SPLITTER OTHER PRN (10:30)
--- NOTE | 2017-09-03 11:07 | MA ---
cc: Triston Negron MD 09/03/2017 INDICATION: Unstable angina, abnormal stress test, intermediate risk. PROCEDURE PERFORMED: 1. Fluoroscopy with interpretation. 2. Coronary angiography. 3. Pressure derived fractional flow reserve of the left anterior descending coronary artery. 4. Percutaneous intervention with drug eluting stent to the mid left anterior descending coronary artery. METHOD: Risks, benefits and alternatives were discussed with the patient. The patient understood and consented to the procedure. The patient was brought to the catheterization lab and placed on the catheterization table. The right wrist was prepped and draped in sterile fashion. The right wrist was anesthetized with 2% lidocaine. The right radial artery was cannulated and a 6 [place] 7 cm sheath was placed without difficulty. CORONARY ANGIOGRAPHY: 1. Left main coronary has mild luminal irregularities. 2. Left anterior descending coronary artery has minor luminal irregularities proximally. In the midsegment there is a 75% stenosis. The remainder of the vessel has mild luminal irregularities. There is a large diagonal branch, has a 30% proximal stenosis. 3. Left circumflex gives rise to two obtuse marginal branches. There is minor luminal irregularities. 4. The right coronary is occluded proximally just prior to the bifurcation of a large posterior descending and posterolateral branch. There is good left to right collateralization via septal perforators. 5. Pressure derived fractional flow reserve measurement of the mid left anterior descending coronary artery. The mid left anterior descending coronary angiographically looked about 75% stenosis. Wanted to confirm hemodynamic significance so we decided to proceed with fractional flow reserve measurement. The left main was selectively engaged with a 6 [place] XB LAD 4.0 guide catheter. A 0.014 inch pressure wire was then advanced out of the catheter and zero normalized. The wire was then carefully navigated across the mid left anterior descending coronary stenosis and IFR performed which came back at 0.86 which meets hemodynamic significance of less than 0.89. At this point we elected to proceed with percutaneous intervention of the mid left anterior descending coronary artery. His right coronary is occluded in the mid to distal segment with good collateralizations. Hopefully we could avoid surgical intervention if he remains asymptomatic with improved left to right collateralization. A 2.5 x 15 mm RX Resolute Mike stent was advanced down to the mid left anterior descending coronary artery, deployed to 14 atmospheres. Repeat angiography showed no residual stenosis, JOSIANE 3 flow. Wire was removed, guide catheter was removed, HemoBand was applied. Angiomax was administered throughout the entire procedure to maintain appropriate anticoagulation. CONCLUSIONS: 1. Severe 2 vessel ho-chunk coronary artery disease involving chronically occluded right coronary artery with good collateralization. 2. Hemodynamically significant mid left anterior descending coronary stenosis via pressure derived fractional flow reserve measurement. 3. Successful percutaneous intervention with drug eluting stent to the mid left anterior descending coronary artery. PLAN: The patient will be monitored closely for any postprocedural complications. He will be initiated on aspirin, Plavix, statin, beta-jerson and isosorbide therapy. Hopefully this will improve his symptoms. Does not eliminate the potential possibility down the road of consideration of bypass surgery should he have more significant diffuse disease progression in the left side circulation. Given his age we wanted to try to avoid that at this point in time. Will monitor him closely and if he does well without any postprocedural issues, we may be able to potentially discharge later today. Triston Negron MD LILLIAN/TL/rr , 09:49 AM , 10:28 AM
[2017-09-03] MEDS ORDERED: ATORVASTATIN 40 MG TAB PO SCH (21:00)
[2017-09-03] MEDS ORDERED: METOPROLOL TARTRATE 25 MG TAB PO SCH (21:00)
[2017-09-04] MEDS ORDERED: ISOSORBIDE MONONITRATE 30 MG CR TAB (IMDUR) PO SCH (07:00)
[2017-09-04] MEDS ORDERED: CLOPIDOGREL 75 MG TAB PO SCH (09:00)
[2017-09-04] MEDS ORDERED: ASPIRIN 81 MG CHEW TAB PO SCH (09:00)
--- NOTE | 2017-09-04 23:50 | EKG ---
Date Performed: 09/03/2017 Time Performed: 12:30:04 PTAGE: 46 years EKG: Sinus bradycardia. Leftward axis Inferior infarct - age undetermined Anterolateral T wave c hanges are nonspecific Abnormal ECG NO PREVIOUS TRACING DOCTOR: Antonio Taylor Interpretating Date/Time 09/04/2017 23:46:56
== END 2017-09-03 15:37 | disposition home or self-care (01) ==
LOC: HDOC 06:23 → HDIC 06:23 → HDOC 15:37
PROVIDERS: ATTEND Internal Medicine
DX: I25.110 Atherosclerotic heart disease of native coronary artery with unstable angina pectoris (principal); I10 Essential (primary) hypertension; Z78.9 Other specified health status; Z79.82 Long term (current) use of aspirin
CPT/HCPCS: 86850; 86900; 86901; 92928; 93005; 93454; 93571; 99152; 99153; C1769; C1874; C1887; C1893; J0583; J1644; J2250; J3010; Q9967